=== PATIENT | female | born 1995 | race Caucasian/White ===

== ENCOUNTER 2024-08-11 10:59 | Inpatient (IN) | payer BC ==
[2024-08-11 11:32] VITALS: BMI 30.2
[2024-08-11] MEDS ORDERED: Promethazine HCl 25 MG/ML VIAL IM PRN ×2 (13:30→14:39)
[2024-08-11] MEDS ORDERED: Acetaminophen 500 MG TAB PO PRN (13:30)
[2024-08-11] MEDS ORDERED: Ondansetron PF 4 MG/2 ML Vial IVP PRN ×2 (13:30→14:39)
[2024-08-11] MEDS ORDERED: Misoprostol 200 MCG TAB PR PRN (13:30)
[2024-08-11] MEDS ORDERED: hydrALAZINE 20 MG/ML VIAL SLOW IVP PRN (13:30)
[2024-08-11] MEDS ORDERED: Lactated Ringer's 1,000 ML IV SCH (13:30)
[2024-08-11] MEDS ORDERED: Tranexamic Acid 1,000 MG/10 ML VIAL IVP PRN (13:30)
[2024-08-11] MEDS ORDERED: Oxytocin 30 units/NS 500 ML 500 ML IV SCH (13:30)
[2024-08-11] MEDS ORDERED: fentaNYL 50 mcg/mL 1 mL Vial SLOW IVP PRN (13:30)
[2024-08-11] MEDS ORDERED: Acetaminophen/Codeine 30-300mg Tablet PO PRN (13:32)
[2024-08-11] MEDS ORDERED: Ibuprofen 800 MG TAB PO PRN (13:32)
[2024-08-11] MEDS ORDERED: HYDROcodone/Acetaminophen 5/325 mg Tablet PO PRN (13:32)
[2024-08-11] MEDS ORDERED: Lidocaine 1% (PF) 30 ML VIAL SC PRN (13:32)
[2024-08-11 13:57] LABS: Hematocrit 42.3 % (34.9-44.5); Hemoglobin 14.6 g/dL (12.0-15.5); Mean Corpuscular HGB CONC 34.5 g/dL (32.0-36.0); Mean Corpuscular Hemoglobin 31.9 pg (27.0-33.0); Mean Corpuscular Volume 92.6 fL (81.6-98.3); Mean Platelet Volume 9.7 fL (7.4-10.4); Platelet Count 227 10x3/uL (150-450); RBC Distribution Width 12.4 % (11.5-14.5); Red Blood Cell (RBC) Count 4.57 10x6/uL (3.90-5.03); White Blood Cell (WBC) Count 14.8 10x3/uL (3.5-10.5)
[2024-08-11 14:32] LABS: HBsAg Index 0.18 S/CO (0-0.99); Hep B Surf Ag - L&D Non-Reactive S/CO (NonReactive)
[2024-08-11 14:33] LABS: Syphilis Antibody Nonreactive (Nonreactive); Syphilis Antibody Index 0.04 S/CO (<1.00 Non-Reactive)
[2024-08-11] MEDS ORDERED: diphenhydrAMINE 50 MG/ML VIAL IVP PRN (14:39)
[2024-08-11] MEDS ORDERED: Lactated Ringer's 500 ML IV PRN (14:39)
[2024-08-11] MEDS ORDERED: ePHEDrine Sulfate 50 MG/10 ML VIAL SLOW IVP PRN (14:39)
[2024-08-11] MEDS ORDERED: Acetaminophen 325 MG TAB PO PRN (14:39)
[2024-08-11] MEDS ORDERED: Naloxone HCl 0.4 mg/ml Vial IVP PRN ×2 (14:39)
[2024-08-11] MEDS ORDERED: Moisturizing Cream (Eucerin) 113 GM JAR TOP PRN (14:39)
[2024-08-11] MEDS ORDERED: fentaNYL 2 mcg/Ropivacaine 0.2% Epidural 100 ML CADD EPIDURAL SCH (14:45)
[2024-08-11] MEDS ORDERED: Communication Order-Pharmacy FS SCH (14:45)
[2024-08-11] MEDS: Methylergonovine 0.2 MG/ML VIAL IM PRN (23:40)
[2024-08-11] MEDS: Carboprost 250 MCG/ML AMP IM PRN (23:42)
[2024-08-11] MEDS: Diphenoxylate HCl/Atropine Tablet PO PRN (23:50)
[2024-08-11 23:51] LABS: Analyzer IN Cardio CS NICU; Critical Notified By: clumpkins rt; RapidComm Collect By ld rn
[2024-08-11 23:53] LABS: Analyzer IN Cardio CS NICU; Critical Notified By: clumpkins rt; RapidComm Collect By ld rn; pH (Cord, venous) 7.348 (7.250-7.350)
[2024-08-12] MEDS ORDERED: Milk Of Magnesia 30 ML UDCUP PO PRN (00:28)
[2024-08-12] MEDS ORDERED: Bisacodyl 10 MG SUPP PR PRN (00:28)
[2024-08-12] MEDS: Ibuprofen 800 MG TAB PO SCH (03:06)
[2024-08-12 03:48] LABS: Hematocrit 40.1 % (34.9-44.5); Hemoglobin 13.9 g/dL (12.0-15.5)
[2024-08-12] MEDS: Azithromycin 500 MG VIAL ONE (07:11)
[2024-08-12] MEDS: fentaNYL/Ropivacaine Epidural 100 ML ONE (07:11)
[2024-08-12] MEDS: CEFAZOLIN 2 GM VIAL ONE (07:11)
[2024-08-12] MEDS: Ferrous Sulfate 325 MG TAB PO SCH (07:12)
[2024-08-12] MEDS: Benzocaine-Menthol 82.5 ML CAN TOP PRN (08:48)
[2024-08-12] MEDS: Docusate 100 MG CAP PO SCH (08:48)
[2024-08-12] MEDS ORDERED: HYDROcodone/Acetaminophen 5/325 mg Tablet PO PRN (14:40)
[2024-08-13] MEDS: Boostrix 0.5 ML (Tdap) VIAL (>/=7 yrs of age) IM ONE (07:49)
[2024-08-13 08:26] VITALS: BP 116/78; TEMP 98.9
== END 2024-08-13 14:40 | disposition home or self-care (01) | DRG 807 ==
LOC: CSHLD/OP 10:59 → CSHLD 19:01 → CSHPP 08-12 03:45
PROVIDERS: ADMIT Obstetrics & Gynecology; ATTEND Obstetrics & Gynecology
PROC: 10E0XZZ Delivery of Products of Conception, External Approach (ICD-10-PCS; principal; 2024-08-11)
PROC: 0KQM0ZZ Repair Perineum Muscle, Open Approach (ICD-10-PCS; 2024-08-11)
PROC: 10907ZC Drainage of Amniotic Fluid, Therapeutic from Products of Conception, Via Natural or Artificial Opening (ICD-10-PCS; 2024-08-11)
DX: O48.0 Post-term pregnancy (principal); Z37.0 Single live birth; O69.81X0 Labor and delivery complicated by cord around neck, without compression, not applicable or unspecified; O70.1 Second degree perineal laceration during delivery; Z3A.40 40 weeks gestation of pregnancy; O76 Abnormality in fetal heart rate and rhythm complicating labor and delivery
CPT/HCPCS: 36415; 51701; 51702; 82805; 85014; 85018; 85027; 86780; 86850; 86900; 86901; 87340; 99285; J2210; J2590; J3490